=== PATIENT | male | born 2000 | race Hispanic/Latino ===

== ENCOUNTER 2023-01-04 10:35 | Emergency (ER) | payer OTHER, SELFPAY ==
--- NOTE | 2023-01-04 11:00 | ER ---
Nurse's Notes [facility] Name: Tanner Lopes Age: 22 yrs Sex: Male : 2000 Arrival Date: 01/04/2023 Time: 10:35 Bed 2 Private MD: Diagnosis: Fall on and from ladder, initial encounter Presentation: 01/04 10:39 Chief complaint: EMS states: Pt fell approx 15 feet in a "ladder cage" slid down the ph ladder and landed on both feet then on buttocks. C/O pain to R heel and low back, was able to ambulate approx 50 feet to stretcher, abrasions to LLL and ARCHANA, did not hit head, no LOC. Coronavirus screen: Vaccine status: Patient reports receiving the 2nd dose of the covid vaccine. Ebola Screen: No symptoms or risks identified at this time. Initial Sepsis Screen: Does the patient meet any 2 criteria? No. Patient's initial sepsis screen is negative. Does the patient have a suspected source of infection? No. Patient's initial sepsis screen is negative. Risk Assessment: Do you want to hurt yourself or someone else? Patient reports no desire to harm self or others. Onset of symptoms was January 04, 2023. 10:39 Method Of Arrival: EMS: [facility] 10:39 Acuity: BRENDA 3 10:46 Care prior to arrival: None. Mechanism of Injury: Fall from ladder approximately 15 ph feet. 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 Triage Assessment: 10:44 General: Appears in no apparent distress. Behavior is calm, cooperative. Pain: ph Complains of pain in heel of right foot. Pain: Complains of pain in low back area. Neuro: Level of Consciousness is awake, alert, obeys commands, Oriented to person, place, time, situation. Cardiovascular: Capillary refill < 3 seconds in bilateral fingers Patient's skin is warm and dry. Respiratory: Airway is patent Respiratory effort is even, unlabored, Respiratory pattern is regular, symmetrical. GI: No signs and/or symptoms were reported involving the gastrointestinal system. Derm: Skin is pink, warm \\T\\ dry. Injury Description: Abrasion sustained to left medina. Injury Description: Abrasion sustained to right bicep. Trauma Activation: Not Applicable Physician: ED Physician; Name: ; Notified At: ; Arrived At: Physician: General Surgeon; Name: ; Notified At: ; Arrived At: Physician: Radiology; Name: ; Notified At: ; Arrived At: Physician: Respiratory; Name: ; Notified At: ; Arrived At: Physician: Lab; Name: ; Notified At: ; Arrived At: Historical: - Allergies: 10:43 No Known Allergies; ph - Home Meds: 10:43 None [Active]; ph - PMHx: 10:43 None; ph - PSHx: 10:43 None; ph - Immunization history:: Adult Immunizations unknown. - Social history:: Smoking status: Reported history of juuling and/or vaping. Screenin:45 [facility] ED Fall Risk Assessment (Adult) History of falling in the last 3 months, ph including since admission No falls in past 3 months (0 pts) Confusion or Disorientation No (0 pts) Intoxicated or Sedated No (0 pts) Impaired Gait No (0 pts) Mobility Assist Device Used No (0 pt) Altered Elimination No (0 pt) Score/Fall Risk Level 0 - 2 = Low Risk Oriented to surroundings, Maintained a safe environment, Hourly rounding (assess needs \\T\\ fall precautionary measures) done. Abuse screen: Denies threats or abuse. Denies injuries from another. Nutritional screening: No deficits noted. Tuberculosis screening: No symptoms or risk factors identified. Assessment: 11:15 Reassessment: No changes from previously documented assessment. Patient and/or family ph updated on plan of care and expected duration. Pain level reassessed. Patient is alert, oriented x 3, equal unlabored respirations, skin warm/dry/pink. Plant safety at bedside states that pt will be seeing their providers pt agrees to plan, ERP at bedside and aware of plan. pt to be d/c. 11:28 General: SEE TRIAGE ASSESSMENT. ph Vital Signs: 10:39 BP 158 / 99; Pulse 78; Resp 18; Temp 97.2; Pulse Ox 96% on R/A; Weight 181.44 kg; ph Height 5 ft. 10 in. ; 10:39 Body Mass Index 57.39 (181.44 kg, 177.8 cm) ph Ford Coma Score: 10:47 Eye Response: spontaneous(4). Motor Response: obeys commands(6). Verbal Response: ph oriented(5). Total: 15. Trauma Score (Adult): 10:47 Eye Response: spontaneous(1); Verbal Response: oriented(1); Motor Response: obeys ph commands(2); Systolic BP: > 89 mm Hg(4); Respiratory Rate: 10 to 29 per min(4); Nucla Score: 15; Trauma Score: 12 ED Course: 10:39 Patient arrived in ED. ph 10:43 Triage completed. ph 10:45 Arm band placed on Patient placed in an exam room, on a stretcher. ph 10:46 Patient has correct armband on for positive identification. Bed in low position. Call ph light in reach. Side rails up X2. Pulse ox on. NIBP on. 10:47 Patient maintains SpO2 saturation greater than 95% on room air. Thermoregulation: warm ph blanket given to patient. 10:50 Maday Mijares PA-C is PHCP. sb4 10:50 Domo Houston DO is Attending Physician. sb4 11:28 Alayna Castle RN is Primary Nurse. ph 11:30 No provider procedures requiring assistance completed. Patient did not have IV access ph during this emergency room visit. Administered Medications: No medications were administered Medication: 11:30 VIS not applicable for this client. ph Outcome: 10:59 Discharge ordered by . sb4 11:30 Discharged to home ambulatory. ph 11:30 Condition: good 11:30 Discharge instructions given to patient, Instructed on discharge instructions, follow up and referral plans. Demonstrated understanding of instructions, follow-up care. 11:30 Patient left the ED. ph Signatures: Alayna Castle RN RN Maday Mijares PA-C PA-C sb4
--- NOTE | 2023-01-04 11:00 | EDPHYS ---
Physician Documentation [facility] Name: Tanner Lopes Age: 22 yrs Sex: Male : 2000 Arrival Date: 01/04/2023 Time: 10:35 Bed 2 Private MD: ED Physician Domo Houston HPI: 01/04 11:03 This 22 yrs old Male presents to ER via EMS with complaints of Fall Injury. sb4 11:03 Details of fall: The patient fell from a height, from a ladder, but was slowed somewhat sb4 by hitting ladder rungs. Onset: The symptoms/episode began/occurred just prior to arrival. Associated injuries: The patient sustained right bicep and left medina and heel of right foot. Severity of symptoms: At their worst the symptoms were very mild. The patient has not experienced similar symptoms in the past. The patient has not recently seen a physician. Historical: - Allergies: 10:43 No Known Allergies; ph - Home Meds: 10:43 None [Active]; ph - PMHx: 10:43 None; ph - PSHx: 10:43 None; ph - Immunization history:: Adult Immunizations unknown. - Social history:: Smoking status: Reported history of juuling and/or vaping. ROS: 11:03 Constitutional: Negative for fever, chills, and weight loss. sb4 11:03 MS/extremity: Positive for pain, of the heel of right foot. 11:03 Skin: Positive for abrasion(s), of the right bicep and left medina. 11:03 All other systems are negative. sb4 Exam: 11:03 Constitutional: This is a well developed, well nourished patient who is awake, alert, sb4 and in no acute distress. Head/Face: Normocephalic, atraumatic. Eyes: Extra-ocular motions intact. Periorbital areas with no swelling, redness, or edema. ENT: Mucous membranes moist. Cardiovascular: Regular rate and rhythm with a normal S1 and S2. Respiratory: Lungs have equal breath sounds bilaterally, clear to auscultation and percussion. No rales, rhonchi or wheezes noted. No increased work of breathing, no retractions or nasal flaring. Abdomen/GI: Soft, non-tender, no distension. Back: No spinal tenderness. No costovertebral tenderness. Full range of motion. MS/ Extremity: Pulses equal, no cyanosis. Neurovascular intact. Full, normal range of motion. Neuro: Awake and alert, GCS 15, oriented to person, place, time, and situation. Cranial nerves II-XII grossly intact. Motor strength 5/5 in all extremities. Sensory grossly intact. Cerebellar exam normal. Normal gait. 11:03 Skin: injury, abrasion(s), moderate sized abrasion noted, of the right bicep, laceration(s), the wound is approximately 5 cm(s), with a depth of .1 cm(s), of the left medina. Vital Signs: 10:39 BP 158 / 99; Pulse 78; Resp 18; Temp 97.2; Pulse Ox 96% on R/A; Weight 181.44 kg; ph Height 5 ft. 10 in. ; 10:39 Body Mass Index 57.39 (181.44 kg, 177.8 cm) ph Ford Coma Score: 10:47 Eye Response: spontaneous(4). Motor Response: obeys commands(6). Verbal Response: ph oriented(5). Total: 15. Trauma Score (Adult): 10:47 Eye Response: spontaneous(1); Verbal Response: oriented(1); Motor Response: obeys ph commands(2); Systolic BP: > 89 mm Hg(4); Respiratory Rate: 10 to 29 per min(4); Ford Score: 15; Trauma Score: 12 MDM: 10:50 Patient medically screened. sb4 11:03 Differential diagnosis: abrasion, contusion, fracture, laceration, sprain, strain. Data sb4 reviewed: vital signs, nurses notes, and as a result, I will discharge patient. Test considered but Not performed: X-ray: no tenderness, significant injury . Counseling: I had a detailed discussion with the patient and/or guardian regarding the historical points, exam findings, and any diagnostic results supporting the discharge/admit diagnosis, to return to the emergency department if symptoms worsen or persist or if there are any questions or concerns that arise at home. ED course: full physical exam performed. very superficial laceration noted to left medina, does not need any suturing, shamika, or skin adhesive. abrasion noted to the right bicep, no active bleeding or significant swelling. he was initially complaining of pain to right heel but no longer is, no tenderness on exam. moves all 4 extremities, no neurologic deficits, no back or neck pain. work supervisors present, are planning to take him to company doctor to be evaluated as well. no intervention is necessary at this time. Administered Medications: No medications were administered Disposition: 13:57 Co-signature as Attending Physician, Domo Houston DO I was immediately available on-site ms3 in the Emergency Department for consultation in the care of the patient. Disposition Summary: 01/04/23 10:59 Discharge Ordered Location: Home sb4 Problem: new sb4 Symptoms: have improved sb4 Condition: Stable sb4 Diagnosis - Fall on and from ladder, initial encounter sb4 Followup: sb4 - With: Private Physician - When: As needed - Reason: Recheck today's complaints, Continuance of care, Re-evaluation by your physician Discharge Instructions: - Discharge Summary Sheet sb4 Forms: - Medication Reconciliation Form sb4 - Thank You Letter sb4 - Antibiotic Education sb4 - Prescription Opioid Use sb4 - Patient Portal Instructions sb4 - Leadership Thank You Letter sb4 Signatures: Alayna Castle, RN RN Domo Houston DO DO ms3 Maday Mijares PA-C PA-C sb4
[2023-01-04 11:49] VITALS: BP 158/99; TEMP 97.2; O2SAT 96
== END 2023-01-04 11:30 | disposition home or self-care (01) ==
LOC: ER 10:35
DX: S81.812A Laceration without foreign body, left lower leg, initial encounter (principal); W11.XXXA Fall on and from ladder, initial encounter
CPT/HCPCS: 99285